=== PATIENT | female | born 1945 | race Caucasian/White ===

== ENCOUNTER → 2022-07-29 | Outpatient (REF) | payer MEDICARE, BC, OTHER ==
[~2022-07-29] MED LIST: ACET1TAB55 PO; ADV100INH INH; ASPI81TA7 PO; ASPI81TA78 PO; ASPI81TA85 PO; ATEN50TA2 PO; ATOR40TA75 PO; BISA10SU PR; BISAC5TA PO; BONI150T PO; BONIVA; CALC500T49 OR; CALCTAB5 PO; COUM1TAB16 PO; COUM1TAB18 PO; FLUO10CA18 PO; IBUP400T OR; MULTIVIT PO; OMEP1CAP73 PO; OXYC1TAB23 PO; PHEN60TA OR; PHEN64.8 PO; PROZ20CA PO; RHIN3SUS; TENO50TA PO; TUMS500C PO; TYLE325T5 PO; VICO5TAB OR; VITA100T OR; [UNRECOGNIZED DRUG - OTHER] OR; advair INH; ibuprofen OR; multivitamin OR; ventolin inh INH
== END ==
LOC: M LAB REF 16:21
PROVIDERS: ATTEND Internal Medicine
DX: N39.0 Urinary tract infection, site not specified (principal)

== ENCOUNTER → 2022-10-01 | Outpatient (REF) | payer MEDICARE, OTHER ==
[2022-10-01 19:34] LABS: APPEARANCE, URINE CLEAR (CLEAR); BACTERIA, URINE AUTO NEGATIVE (NEGATIVE); BILIRUBIN, URINE AUTO NEGATIVE (NEGATIVE); BLOOD, URINE BLOOD 1+ (NEGATIVE); COLOR, URINE YELLOW (YELLOW); GLUCOSE, URINE (UA) AUTO NEGATIVE (NEGATIVE); KETONE, URINE AUTO NEGATIVE (NEGATIVE); LEUKOCYTE ESTERASE, URINE AUTO NEGATIVE (NEGATIVE); MUCUS, URINE SMALL (NEGATIVE); NITRITE, URINE AUTO NEGATIVE (NEGATIVE); PROTEIN, URINE AUTO NEGATIVE (NEGATIVE); RBC, URINE AUTO 2 /HPF (0-3); SPECIFIC GRAVITY URINE AUTO 1.011 (1.002-1.035); SQUAMOUS EPITHELIAL CELL UR AU 1 /HPF (0-6); UROBILINOGEN, URINE AUTO 0.2 mg/dL (0.0-2.0); WBC, URINE AUTO 1 /HPF (0-3)
== END ==
LOC: M SMT 16:47
PROVIDERS: ATTEND Specialist
DX: R30.0 Dysuria (principal)

== ENCOUNTER → 2022-11-10 | Outpatient (REF) | payer MEDICARE, OTHER ==
[2022-11-10 17:46] LABS: PERCENT SATURATION 7.4 % (13.2-45.0)
[2022-11-10 17:49] LABS: FERRITIN 12.7 NG/ML (7.3-270.7)
== END ==
LOC: M LAB REF 16:24
PROVIDERS: ATTEND Internal Medicine
DX: D64.9 Anemia, unspecified (principal)

== ENCOUNTER → 2022-11-26 | Outpatient (REF) ==
[~2022-11-26] MED LIST changes: +ADV250INH INH; +CALC1TAB30 PO; +ESTR10TA PV; +FURO40TA2 PO; +GUAI20TA PO; +IBUP200T46 PO; +LEVO1TAB40 PO; +MIRA1POW3 PO; +OMEP-173 PO; +PHEN1TAB73 PO; +POTA-136 PO; +SUCR1TA PO; +THERTAB21 PO; +VENTAER INH; +XALA0.007 OU; +XARE10TA PO; -ibuprofen OR; +ibuprofen PO
[2022-11-26 10:55] LABS: HEMATOCRIT 30.6 % (36.0-47.0); HEMOGLOBIN 9.4 g/dl (12.0-15.5); MEAN CORPUSCULAR HEMOGLOBIN 29.5 pg (27.0-33.0); MEAN CORPUSCULAR HGB CONC 30.7 g/dl (32.0-36.5); MEAN CORPUSCULAR VOLUME 95.9 fl (80.0-96.0); PLATELET COUNT, AUTOMATED 254 10^3/uL (150-450); RED BLOOD COUNT 3.19 10^6/uL (4.00-5.40); WHITE BLOOD COUNT 9.3 10^3/uL (4.0-10.0)
[2022-11-26 11:22] LABS: BLOOD UREA NITROGEN 12 MG/DL (9-23); CALCIUM LEVEL 8.6 MG/DL (8.3-10.6); CARBON DIOXIDE LEVEL 27 MMOL/L (20-31); CHLORIDE LEVEL 106 MMOL/L (98-107); CREATININE FOR GFR 0.67 MG/DL (0.55-1.30); GLOMERULAR FILTRATION RATE > 60.0 (>39); GLUCOSE, FASTING 98 MG/DL (74-106); POTASSIUM SERUM 3.7 MMOL/L (3.5-5.1); SODIUM LEVEL 142 MMOL/L (136-145)
== END ==
PROVIDERS: ATTEND Internal Medicine
DX: D64.9 Anemia, unspecified (principal)

== ENCOUNTER → 2022-12-12 | Outpatient (REF) | payer MEDICARE, BC, OTHER ==
[2022-12-12 10:00] LABS: HEMATOCRIT 31.6 % (36.0-47.0); HEMOGLOBIN 9.8 g/dl (12.0-15.5); MEAN CORPUSCULAR HEMOGLOBIN 28.7 pg (27.0-33.0); MEAN CORPUSCULAR VOLUME 92.7 fl (80.0-96.0); PLATELET COUNT, AUTOMATED 542 10^3/uL (150-450); RED BLOOD COUNT 3.41 10^6/uL (4.00-5.40)
[2022-12-12 10:53] LABS: BLOOD UREA NITROGEN 13 MG/DL (9-23); CALCIUM LEVEL 8.6 MG/DL (8.3-10.6); CARBON DIOXIDE LEVEL 34 MMOL/L (20-31); CHLORIDE LEVEL 102 MMOL/L (98-107); CREATININE FOR GFR 0.71 MG/DL (0.55-1.30); GLOMERULAR FILTRATION RATE > 60.0 (>39); GLUCOSE, FASTING 107 MG/DL (74-106); POTASSIUM SERUM 2.6 MMOL/L (3.5-5.1); SODIUM LEVEL 141 MMOL/L (136-145)
== END ==
PROVIDERS: ATTEND Internal Medicine
DX: I10 Essential (primary) hypertension (principal)

== ENCOUNTER → 2022-12-14 | Outpatient (REF) | payer MEDICARE, BC, OTHER | PROVIDERS: ATTEND Internal Medicine | DX: E87.6 Hypokalemia (principal); Z53.8 Procedure and treatment not carried out for other reasons ==

== ENCOUNTER → 2022-12-15 | Outpatient (REF) | payer MEDICARE, BC, OTHER ==
[2022-12-15 15:07] LABS: BLOOD UREA NITROGEN 16 MG/DL (9-23); CALCIUM LEVEL 8.9 MG/DL (8.3-10.6); CARBON DIOXIDE LEVEL 32 MMOL/L (20-31); CHLORIDE LEVEL 102 MMOL/L (98-107); CREATININE FOR GFR 0.78 MG/DL (0.55-1.30); GLOMERULAR FILTRATION RATE > 60.0 (>39); GLUCOSE, FASTING 82 MG/DL (74-106); SODIUM LEVEL 142 MMOL/L (136-145)
== END ==
PROVIDERS: ATTEND Internal Medicine
DX: E87.6 Hypokalemia (principal)

== ENCOUNTER → 2022-12-15 | Outpatient (REF) | payer MEDICARE, BC, OTHER | PROVIDERS: ATTEND Internal Medicine | DX: R05.9 Cough, unspecified (principal) ==

== ENCOUNTER → 2022-12-17 | Outpatient (REF) | payer MEDICARE, BC, OTHER | PROVIDERS: ATTEND Internal Medicine | DX: D64.9 Anemia, unspecified (principal); Z53.8 Procedure and treatment not carried out for other reasons ==

== ENCOUNTER → 2023-01-05 | Outpatient (REF) | payer MEDICARE, OTHER ==
[2023-01-05 17:04] LABS: FERRITIN 12.4 NG/ML (7.3-270.7)
[2023-01-05 17:05] LABS: PERCENT SATURATION 13.5 % (13.2-45.0)
== END ==
LOC: M LAB REF 16:11
PROVIDERS: ATTEND Internal Medicine
DX: D64.9 Anemia, unspecified (principal)

== ENCOUNTER 2023-01-20 08:30 | Outpatient (CLI) | payer MEDICARE, BC, OTHER ==
[~2023-01-20] VITALS: Ht 160 cm; Wt 59.1 kg
[~2023-01-20 08:30] MED LIST changes: +ALBUTEROL SULFATE 2.5MG/0.5ML INH NEB SOLN INH PRN; +EPINEPHrine INJ 1 MG/ML 1ML AMP IM PRN; +NS 1,000 ML IV SCH; +diphenhydrAMINE 50MG/ML VIAL IV PRN; +methylPREDNISolone 125MG 2ML VIAL IV PRN
[2023-01-20 09:00] VITALS: BP 150/65; O2SAT 94
[2023-01-20] MEDS ORDERED: FERRIC CARBOXYMALTOSE INJ 750 MG in NS 250 ML (>50kg) IV ONE ×3 (09:00)
[2023-01-20 11:30] VITALS: BP 124/68; O2SAT 97
== END 2023-01-20 11:30 | disposition home or self-care (01) ==
LOC: M INFU 08:30
PROVIDERS: ATTEND Internal Medicine
DX: D50.9 Iron deficiency anemia, unspecified (principal); Z88.5 Allergy status to narcotic agent
CPT/HCPCS: 96365; 96366; J1439

== ENCOUNTER 2023-01-27 11:30 | Outpatient (CLI) | payer MEDICARE, BC, OTHER ==
[~2023-01-27] VITALS: Ht 160 cm; Wt 60.0 kg
[~2023-01-27 11:30] MED LIST changes: -NS 1,000 ML IV SCH
[2023-01-27] MEDS ORDERED: FERRIC CARBOXYMALTOSE INJ 750 MG in NS 250 ML (>50kg) IV ONE ×3 (11:35)
[2023-01-27] MEDS ORDERED: NS 1,000 ML IV SCH (11:35)
[2023-01-27 12:22] VITALS: BP 171/72; O2SAT 100
== END 2023-01-27 13:10 | disposition home or self-care (01) ==
LOC: M INFU 11:30
PROVIDERS: ATTEND Internal Medicine
DX: D64.9 Anemia, unspecified (principal); Z88.5 Allergy status to narcotic agent
CPT/HCPCS: 96365; J1439

== ENCOUNTER → 2023-02-24 | Outpatient (REF) | payer MEDICARE, BC, OTHER ==
[~2023-02-24] MED LIST changes: -ALBUTEROL SULFATE 2.5MG/0.5ML INH NEB SOLN INH PRN; -EPINEPHrine INJ 1 MG/ML 1ML AMP IM PRN; -diphenhydrAMINE 50MG/ML VIAL IV PRN; -methylPREDNISolone 125MG 2ML VIAL IV PRN
[2023-02-24 14:13] LABS: FERRITIN 622.3 NG/ML (7.3-270.7)
[2023-02-24 14:14] LABS: IRON (FE) 75 UG/DL (50-170); PERCENT SATURATION 33.6 % (13.2-45.0); TOTAL IRON BINDING CAPACITY 223 UG/DL (250-425)
[2023-02-24 14:15] LABS: VITAMIN B12 LEVEL 894 PG/ML (211-911)
[2023-02-24 14:16] LABS: FOLATE > 24.0 NG/ML (>5.4)
== END ==
LOC: M LAB REF 12:48
PROVIDERS: ATTEND Internal Medicine
DX: D64.9 Anemia, unspecified (principal); I50.32 Chronic diastolic (congestive) heart failure

== ENCOUNTER → 2023-02-24 | Outpatient (CLI) | payer MEDICARE, BC, OTHER | LOC: M WUC 12:11 | PROVIDERS: ATTEND Internal Medicine | DX: R06.00 Dyspnea, unspecified (principal); R05.9 Cough, unspecified ==

== ENCOUNTER → 2023-03-20 | Outpatient (CLI) | payer MEDICARE, BC, OTHER | LOC: M PLAIMG 09:53 → M RAD 09:53 | PROVIDERS: ATTEND Internal Medicine | DX: K44.9 Diaphragmatic hernia without obstruction or gangrene (principal); J43.9 Emphysema, unspecified ==

== ENCOUNTER → 2023-11-10 | Outpatient (REF) | payer MEDICARE, BC, OTHER ==
[~2023-11-10] MED LIST changes: +FLUO-290 PO; -FLUO10CA18 PO; -MIRA1POW3 PO; +MIRA33506 PO
[2023-11-10 18:50] LABS: FERRITIN 627.6 NG/ML (7.3-270.7); PERCENT SATURATION 29.2 % (13.2-45.0)
== END ==
LOC: M LAB REF 17:57
PROVIDERS: ATTEND Internal Medicine
DX: E61.1 Iron deficiency (principal)

== ENCOUNTER → 2024-05-10 | Outpatient (REF) | payer MEDICARE, OTHER ==
[~2024-05-10] MED LIST changes: -ADV250INH INH; +ADVA1AER9 INH
[2024-05-10 18:13] LABS: PERCENT SATURATION 30.5 % (13.2-45.0)
== END ==
LOC: M LAB REF 17:12
PROVIDERS: ATTEND Internal Medicine
DX: D50.9 Iron deficiency anemia, unspecified (principal)

== ENCOUNTER → 2024-08-17 | Outpatient (CLI) | payer MEDICARE, BC ==
[~2024-08-17] MED LIST changes: +BUDE10.7 INH; +COLA100C5 PO; +ELIQ2.5T PO; +FLUO1TAB PO; +FLUT1BLS2; +LIDO5TD TD; +POTA-298 PO; +PRED20TA PO; +SLOWTAB2 PO
== END ==
LOC: M SOG 07:20
PROVIDERS: ATTEND Orthopaedic Surgery
DX: M25.551 Pain in right hip (principal)

== ENCOUNTER 2024-09-24 10:34 | Emergency (ER) | payer MEDICARE, BC ==
[~2024-09-24] VITALS: Ht 157.5 cm; Wt 54.5 kg
[~2024-09-24 10:34] MED LIST changes: +SLOW1TAB3 PO; -SLOWTAB2 PO
[2024-09-24] MEDS: ACETAMINOPHEN 325 MG TAB PO ONE (14:49)
[2024-09-24 16:37] VITALS: TEMP 98.3
[2024-09-24 17:59] VITALS: BP 176/79; O2SAT 94
== END 2024-09-24 18:07 | disposition home or self-care (01) ==
LOC: M ED 10:34
DX: S81.811A Laceration without foreign body, right lower leg, initial encounter (principal); S86.912A Strain of unspecified muscle(s) and tendon(s) at lower leg level, left leg, initial encounter; W19.XXXA Unspecified fall, initial encounter; Y92.009 Unspecified place in unspecified non-institutional (private) residence as the place of occurrence of the external cause; Y93.9 Activity, unspecified; Y99.9 Unspecified external cause status; R56.9 Unspecified convulsions; Z86.79 Personal history of other diseases of the circulatory system; Z85.51 Personal history of malignant neoplasm of bladder; M81.0 Age-related osteoporosis without current pathological fracture; Z79.01 Long term (current) use of anticoagulants; Z79.899 Other long term (current) drug therapy; Z88.5 Allergy status to narcotic agent

== ENCOUNTER → 2024-11-10 | Outpatient (REF) | payer MEDICARE, BC ==
[2024-11-10 19:32] LABS: IRON (FE) 66.0 UG/DL (50-170); PERCENT SATURATION 24.6 % (13.2-45.0)
[2024-11-10 19:35] LABS: VITAMIN B12 LEVEL 496.0 PG/ML (211-911)
== END ==
LOC: M LAB REF 18:30
PROVIDERS: ATTEND Internal Medicine
DX: D50.9 Iron deficiency anemia, unspecified (principal)

== ENCOUNTER → 2024-11-14 | Outpatient (CLI) | payer MEDICARE, BC | LOC: M SOG 10:11 | PROVIDERS: ATTEND Orthopaedic Surgery | DX: S32.45 Transverse fracture of acetabulum (principal) ==